=== PATIENT | female | born 1995 | race Caucasian/White ===

== ENCOUNTER 2019-03-11 21:51 | Outpatient (CLI) | payer OTHER ==
[~2019-03-11] VITALS: Ht 147.3 cm; Wt 71.4 kg
--- NOTE | 2019-03-11 21:45 | NUR ---
G1 at 32 weeks and 2 days arrives to unit with complaint of high BP at home. Pt denies changes in vision, headaches, or RUQ pain. Pt reports sometimes she is swollen but she took it easy today so she isnt today. Reports good movement, denies contractions, denies LOF. Pt oriented to room, call light within reach, bed in low and locked position. Plan of care reviewed with patient. EFM and toco explained and applied. Vital signs obtained. Admission assessment started.
[~2019-03-11 21:51] MED LIST: NECON 0.5/35 351 TA1 PO
[2019-03-11 22:10] VITALS: BP 139/93; PULSE 101; TEMP 98.4
[2019-03-11] MEDS ORDERED: PRENATAL MVI (22:15)
[2019-03-11] MEDS ORDERED: PROCARDIA XL90 MG PO (22:15)
[2019-03-11] MEDS ORDERED: ASPIRIN 81M81 MG/TA2 PO (22:16)
[2019-03-11 22:17] LABS: BASO # 0.1 (0.0-0.2); BASO % 0.3 % (0.0-2.0); EOS # 0.2 (0.0-0.7); GRAN # 12.9 (1.4-6.5); GRAN % 75.5 % (42.2-75.2); HEMATOCRIT 37.4 % (37.0-47.0); LYMPH # 2.4 (1.2-3.4); MEAN CELL VOLUME 90 fl (80.0-100.0); MEAN CORPUSCULAR HEMOGLOBIN 31 pg (27.0-31.0); MEAN CORPUSCULAR HGB CONC 35 g/dl (33.0-37.0); MEAN PLATELET VOLUME 10.4 fl (7.4-10.4); MONO # 1.4 (0.1-0.6); MONO % 8.4 % (1.7-9.3); PLATELET COUNT 236 K/mm3 (130-400); RED BLOOD COUNT 4.16 M/mm3 (4.10-5.30); REDCELL DISTRIBUTION WIDTH-CV 12.1 % (11.5-14.5)
[2019-03-11 22:27] LABS: ALBUMIN 3.3 gm/dL (3.5-5.0); BILIRUBIN,TOTAL 0.2 mg/dL (0.0-1.0); CREATININE, serum 0.39 (0.52-1.25); POTASSIUM 3.9 mmol/L (3.4-5.0); TOTAL PROTEIN 6.5 gm/dL (6.4-8.2)
[2019-03-11 22:39] LABS: COLLECTION METHOD CLEAN CATCH
[2019-03-11 22:45] LABS: MUCOUS Present /lpf; PH 6 (5-8); SQUAMOUS EPITHELIAL 0-2 /hpf; URINE APPEARANCE Clear; URINE BACTERIA Rare /hpf; URINE BILIRUBIN Negative (NEGATIVE); URINE BLOOD Negative (NEGATIVE); URINE COLOR Straw; URINE GLUCOSE Negative (NEGATIVE); URINE KETONE Negative (NEGATIVE); URINE LEUKOCYTE ESTERASE Negative (NEGATIVE); URINE NITRATE Negative (NEGATIVE); URINE PROTEIN(semi-quant) Negative (NEGATIVE); URINE RBC 0-2 /hpf; URINE UROBILINOGEN Negative (NEGATIVE); URINE WBC 0-2 /hpf
--- NOTE | 2019-03-11 22:55 | NUR ---
All labs within normal limits. Discussed discharge plan with patient and spouse, all questions answered. Pt [facility] Discharge instructions reviewed. Pt seen ambulating off unit with spouse.
== END 2019-03-11 22:55 | disposition home or self-care (01) ==
LOC: LDRO 21:51 → LDR 21:59 → LDRO 22:55
PROVIDERS: Obstetrics & Gynecology
DX: O13.3 Gestational [pregnancy-induced] hypertension without significant proteinuria, third trimester (principal); Z3A.32 32 weeks gestation of pregnancy
CPT/HCPCS: OP

== ENCOUNTER 2019-04-12 08:20 | Inpatient (IN) | payer BC, OTHER ==
[~2019-04-12] VITALS: Ht 149.9 cm; Wt 75.0 kg
[2019-04-12] VITALS (14 sets, daily range): BP systolic 142–173; BP diastolic 84–115; PULSE 71–86; TEMP 98.7–99.5
[~2019-04-12 08:20] MED LIST changes: +ASPIRIN 81M81 MG/TA2 PO; +PRENATAL MVI; +PROCARDIA XL90 MG PO
--- NOTE | 2019-04-12 19:50 | NUR ---
G1 at 36 weeks and 6 days arrives to unit for scheduled induction of labor. Pt reports feeling good movement, denies LOF, denies vaginal bleeding, and denies feeling contractions. Pt does think that she lost her mucous plug today. Pt being induced for pre-eclampsia and IUGR. Pt denies headaches, blurry vision or RUQ pain. Pt changed into clean gown. Oriented to room, call light within reach, bed in low and locked position. EFM and toco explained and applied. Admission assessment started. Vital signs obtained. SVE - 0/50/-3.
[2019-04-12] MEDS ORDERED: TRANDATE300 MG PO (20:06)
--- NOTE | 2019-04-12 20:15 | NUR ---
Consents and plan of care reviewed with patient and spouse. Patient verbalized understanding. All questions answered.
--- NOTE | 2019-04-12 20:45 | NUR ---
18 g IV started in left hand with 1 attempt. Admission labs obtained off of IV start. Lactated Ringers infusing to gravity.
--- NOTE | 2019-04-12 21:00 | NUR ---
Category 1 FHR tracing obtained. 50 mcg cytotec given PO. Spouse supportive at bedside.
--- NOTE | 2019-04-12 21:08 | NUR ---
2039 - BP 170/106 2099 - BP 171/105 2107 - 20 mg IV Labetalol given IV per Dr. Rangel's orders
[2019-04-12 21:14] LABS: BASO # 0.1 (0.0-0.2); BASO % 0.4 % (0.0-2.0); EOS # 0.3 (0.0-0.7); EOS % 1.7 % (0-4.0); GRAN # 11.2 (1.4-6.5); GRAN % 71.1 % (42.2-75.2); HEMATOCRIT 38.7 % (37.0-47.0); HEMOGLOBIN 13.6 g/dl (12.5-16.0); LYMPH # 2.8 (1.2-3.4); LYMPH % 18.1 % (20.0-51.0); MEAN CELL VOLUME 89 fl (80.0-100.0); MEAN CORPUSCULAR HEMOGLOBIN 31 pg (27.0-31.0); MEAN CORPUSCULAR HGB CONC 35 g/dl (33.0-37.0); MEAN PLATELET VOLUME 11.8 fl (7.4-10.4); MONO # 1.2 (0.1-0.6); MONO % 7.6 % (1.7-9.3); PLATELET COUNT 238 K/mm3 (130-400); RED BLOOD COUNT 4.37 M/mm3 (4.10-5.30); REDCELL DISTRIBUTION WIDTH-CV 12.1 % (11.5-14.5)
[2019-04-12 21:25] LABS: ALBUMIN 3.5 gm/dL (3.5-5.0); BILIRUBIN,TOTAL 0.2 mg/dL (0.0-1.0); CALCIUM 9.1 mg/dL (8.4-10.2); CREATININE, serum 0.64 (0.52-1.25); POTASSIUM 4.3 mmol/L (3.4-5.0); TOTAL PROTEIN 6.7 gm/dL (6.4-8.2)
[2019-04-13] VITALS (56 sets, daily range): BP systolic 103–167; BP diastolic 59–105; PULSE 60–103; TEMP 97.9–98.4
--- NOTE | 2019-04-13 01:00 | NUR ---
Category 1 FHR tracing. 25 mcg cytotec given orally. Pt reports feeling more contractions but denies them being painful. Pt denies headaches, blurry vision, or RUQ pain.
--- NOTE | 2019-04-13 08:27 | NUR ---
Skin prepped for OR. Taken off monitors. To OR via bed.
--- NOTE | 2019-04-13 12:49 | NUR ---
BP 158/102 AND 160/103. DR LEAL CALLED AND UPDATED. ORDERS GIVEN TO START PROCARDIA 90 XL DAILY AT THIS TIME
--- NOTE | 2019-04-14 06:30 | NUR ---
REPORT RECEIVED FROM GOING RN, CARE TAKEN OVER BY THIS RN.
[2019-04-14 06:58] VITALS: BP 164/94; PULSE 69; TEMP 98.3
--- NOTE | 2019-04-14 07:22 | NUR ---
Breast pump and pump instructions provided.
--- NOTE | 2019-04-14 11:24 | NUR ---
Initial visit; Parents thanked [employer] for offering congratulations and God's blessings for the of their daughter. [employer] thanked family for choosing [facility].
[2019-04-14 16:14] VITALS: BP 147/99; PULSE 88; TEMP 98.2
[2019-04-14 22:15] VITALS: BP 139/88; PULSE 79; TEMP 98.3
[2019-04-15 07:00] VITALS: BP 145/95; PULSE 92
[2019-04-15 17:02] VITALS: BP 158/98; PULSE 86
[2019-04-15 22:31] VITALS: BP 151/97; PULSE 95; TEMP 98.4
[2019-04-16] MEDS ORDERED: MOTRIN 800800 MG/TAB PO (07:49)
[2019-04-16] MEDS ORDERED: PERCOCET 325 MG1 TA2 PO (07:49)
[2019-04-16] MEDS ORDERED: PROCARDIA XL 3030 MG PO (07:49)
[2019-04-16 08:20] VITALS: BP 165/103; PULSE 75; TEMP 97.9
[2019-04-16 10:15] VITALS: BP 163/104
[2019-04-16 10:25] VITALS: BP 155/98
[2019-04-16 10:40] VITALS: BP 149/103
[2019-04-16 10:55] VITALS: BP 148/95
== END 2019-04-16 11:45 | disposition home or self-care (01) | DRG 787 ==
LOC: OB 08:20 → LDR 19:32 → OB 04-13 14:37
PROVIDERS: ADMIT Obstetrics & Gynecology
PROC: 10D00Z1 Extraction of Products of Conception, Low, Open Approach (ICD-10-PCS; principal; 2019-04-13)
PROC: 10907ZC Drainage of Amniotic Fluid, Therapeutic from Products of Conception, Via Natural or Artificial Opening (ICD-10-PCS; 2019-04-13)
PROC: 3E0P7GC Introduction of Other Therapeutic Substance into Female Reproductive, Via Natural or Artificial Opening (ICD-10-PCS; 2019-04-13)
DX: O11.3 Pre-existing hypertension with pre-eclampsia, third trimester (principal); O98.82 Other maternal infectious and parasitic diseases complicating childbirth; O10.913 Unspecified pre-existing hypertension complicating pregnancy, third trimester; Z3A.37 37 weeks gestation of pregnancy; Z37.0 Single live birth
CPT/HCPCS: J0690; J1885; J2370; J2405; J2590; J3010; J3475; J7120

== ENCOUNTER → 2019-04-19 | Outpatient (CLI) | payer BC, OTHER ==
[~2019-04-19] MED LIST changes: +MOTRIN 800800 MG/TAB PO; +PERCOCET 325 MG1 TA2 PO; +PROCARDIA XL 3030 MG PO; +TRANDATE300 MG PO
--- NOTE | 2019-04-19 15:10 | NUR ---
Pt, Susu Johnson, presents for outpatient consult with six day old baby girl, Jennifer Johnson, to evaluate . Jennifer was born on [birth year] at 37 weeks gestation because of pt's pre-eclampsia. weigth was 4#15.7oz (2660gms) and her hospital stay was complicated by low blood glucose that required IV fluids. Jennifer discharged at 3 days of age bottle feeding and pt was expressing. Milk supply was not fully established until 4 days of age. Today Jennifer weighs 4#11.5oz (2142 gms). Pt reports Jennifer has QS voids and stools. Pt has been working on Jennifer at home since the milk supply is up but reports feedings are only about 5 minutes and she relatches several times during the feeding. Jennifer is then supplemented about 1oz EBM by bottle after each feeding. Pt reports pumping 4-6oz every 2-3 hours. Jennifer has difficulty latching initially, LC able to help keep jaw open wider and latches about 5 minutes, relatches for about another 5 minutes. Second breast is shorter feeding. Gain from right is 8gm, form left is 10 gms for a gain of 18 gms. (0.7oz). Pt pumps about 6oz after . Jennifer is supplemented 40ml EBM by bottle for total gain of 2.1oz (58 gms). POC: Continue offering breast, supplementing about 45ml after and pumping. F/U: As pt desires, may attend walk-in clinic on Tuesdays, or schedule another outpatient visit as Jennifer gets stronger at the breast. Questions invited and answered.
== END ==
LOC: LAC 14:39
DX: Z39.1 Encounter for care and examination of lactating mother (principal); Z71.89 Other specified counseling